=== PATIENT | female | born 1995 | race Caucasian/White ===

== ENCOUNTER → 2020-01-21 | Outpatient (CLI) | payer MEDICAID ==
[2020-01-21 10:10] LABS: HEMATOCRIT 37 % (35-52); HEMOGLOBIN 11.8 G/DL (11.5-16.0); MEAN CORPUSCULAR HEMOGLOBIN 28 PG (25-34); MEAN CORPUSCULAR HGB CONC 32 G/DL (32-36); MEAN CORPUSCULAR VOLUME 89 FL (80-99); PLATELET COUNT 311 10^3/uL (130-400); WHITE BLOOD COUNT 11.2 10^3/uL (4.3-11.0)
[2020-01-21 10:11] LABS: BASOPHILS # (AUTO) 0.1 10^3/uL (0.0-0.1); BASOPHILS % (AUTO) 0 % (0-10); EOSINOPHILS # (AUTO) 0.2 10^3/uL (0.0-0.3); EOSINOPHILS % (AUTO) 2 % (0-10); LYMPHOCYTES # (AUTO) 2.1 X 10^3 (1.0-4.0); LYMPHOCYTES % (AUTO) 19 % (12-44); MONOCYTES # (AUTO) 0.9 X 10^3 (0.0-1.0); MONOCYTES % (AUTO) 8 % (0-12); NEUTROPHILS # (AUTO) 7.9 X 10^3 (1.8-7.8); NEUTROPHILS % (AUTO) 71 % (42-75)
== END ==
LOC: LAB FS 09:31
PROVIDERS: ATTEND Family Medicine
DX: Z34.02 Encounter for supervision of normal first pregnancy, second trimester (principal); Z3A.00 Weeks of gestation of pregnancy not specified
CPT/HCPCS: 36415; 82950; 85025; 86780

== ENCOUNTER 2020-03-29 19:00 | Inpatient (IN) | payer MEDICAID ==
[~2020-03-29] VITALS: Ht 152 cm; Wt 76.1 kg
[2020-03-29] MEDS ORDERED: NS IV 500 ML 500 ML ONE (19:25)
[2020-03-29] MEDS ORDERED: D5 LR IV SOLUTION 1,000 ML IV ONE (19:25)
[2020-03-29] MEDS ORDERED: NS IV 500 ML 500 ML IV ONE (19:30)
[2020-03-29] MEDS ORDERED: MISOPROSTOL 100 MCG (CYTOTEC) TAB PO NR (19:30)
[2020-03-29] MEDS ORDERED: PREN-8 PO (19:40)
[2020-03-29] MEDS: D5 LR IV SOLUTION 1,000 ML IV SCH (19:56)
[2020-03-29 20:06] LABS: BASOPHILS % (AUTO) 0 % (0-10); EOSINOPHILS # (AUTO) 0.2 10^3/uL (0.0-0.3); EOSINOPHILS % (AUTO) 2 % (0-10); HEMATOCRIT 38 % (35-52); HEMOGLOBIN 12.2 g/dL (11.5-16.0); LYMPHOCYTES # (AUTO) 2.2 10^3/uL (1.0-4.0); LYMPHOCYTES % (AUTO) 20 % (12-44); MEAN CORPUSCULAR HEMOGLOBIN 28 pg (25-34); MEAN CORPUSCULAR HGB CONC 32 g/dL (32-36); MEAN CORPUSCULAR VOLUME 85 fL (80-99); MEAN PLATELET VOLUME 10.7 fL (9.0-12.2); MONOCYTES # (AUTO) 0.8 10^3/uL (0.0-1.0); MONOCYTES % (AUTO) 7 % (0-12); NEUTROPHILS # (AUTO) 7.7 10^3/uL (1.8-7.8); NEUTROPHILS % (AUTO) 70 % (42-75); PLATELET COUNT 251 10^3/uL (130-400)
[2020-03-29 20:13] VITALS: BP 133/85
[2020-03-29 22:00] VITALS: BP 119/63
[2020-03-29] MEDS ORDERED: PETROLATUM JELLY(VASELINE) 49 GM JAR ONE (22:55)
[2020-03-29] MEDS ORDERED: ERYTHROMYCIN OPHTH OINT 1 GM (SINGLE USE) TUBE ONE (22:55)
[2020-03-29] MEDS ORDERED: PHYTONADIONE (VIT. K) NEONATAL 1 MG/0.5 ML AMP ONE (22:55)
[2020-03-29 23:00] VITALS: BP 121/62
[2020-03-29] MEDS ORDERED: MISOPROSTOL 100 MCG (CYTOTEC) TAB PO SCH (23:30)
[2020-03-29 23:50] VITALS: BP 115/59
[2020-03-30] VITALS (68 sets, daily range): BP systolic 102–144; BP diastolic 51–81
[2020-03-30] MEDS: D5 LR IV SOLUTION 1,000 ML IV SCH ×2 (03:44→11:39)
[2020-03-30] MEDS ORDERED: OXYTOCIN PRE-MIX DRIP 500 ML IV ONE (08:03)
[2020-03-30] MEDS ORDERED: OXYTOCIN PRE-MIX DRIP 500 ML IV SCH (08:15)
--- NOTE | 2020-03-30 08:28 | History & Physical-OB ---
OB - Chief Complaint & HPI Date/Time Date of Admission: Date of Admission: Mar 29, 2020 at 19:18 Date seen by a Provider: Mar 30, 2020 Time Seen by a Provider: 08:10 Chief Complaint/History OB-Reason for Admission/Chief: Induction of Labor Hx : 1 Hx Para: 0 Expected Date of Delivery: Apr 02, 2020 Gestational Age in Weeks: 39 Gestational Age in Days: 4 Indication for induction: maternal discomfort Admission Nurse Assessment Rev: Yes History of Labs GBS neg Allergies and Home Medications Allergies Coded Allergies: amoxicillin (Verified Allergy, Mild, Hives, 03/29/20) Patient Home Medication List Home Medication List Reviewed: Yes OB - History Hx of Present Care: Yes Ultrasounds: Normal mid trimester US Obstetrical Complications: None Medical Complications: None Patient Past Medical History n/a Immunizations Hepatitis B: Yes OB - Admission Exam Physical Exam Vitals: Vital Signs 03/29/20 03/30/20 03/30/20 20:13 05:50 07:50 Temp 36.8 Pulse 90 Resp 18 B/P (MAP) 112/59 (76) Pulse Ox 98 O2 Delivery Room Air HEENT: NCAT Heart: Rhythm Normal Lungs: Clear Abdomen: Gravid Extremities: Normal Reflexes: Normal Cervical Dilatation: 1cm Effacement: 75% Station: -1 Membranes: Intact Heart Rate: 130's Accelerations: Accelerations Present Decelerations: No Decelerations Short Term Variability: Present Penitentiary Variability: Average (6-25) Contractions on Admission: >10 Minutes Apart Intensity: Mild Cisneros Scoring Tool (Modified) Dilation (cm): 1-2cm (1) Effacement (%): 51-79% (2) Descent/Station: -1,0 (2) Cervix Consistency: Soft (2) Cervix Position: Anterior (2) Subtract 1 point for: Nulliparity (-1) Cisneros Score: 8 Labs Laboratory Tests Test 03/29/20 19:50 Range/Units White Blood Count 11.0 4.3-11.0 10^3/uL Red Blood Count 4.43 3.80-5.11 10^6/uL Hemoglobin 12.2 11.5-16.0 g/dL Hematocrit 38 35-52 % Mean Corpuscular Volume 85 80-99 fL Mean Corpuscular Hemoglobin 28 25-34 pg Mean Corpuscular Hemoglobin Concent 32 32-36 g/dL Red Cell Distribution Width 14.2 10.0-14.5 % Platelet Count 251 130-400 10^3/uL Mean Platelet Volume 10.7 9.0-12.2 fL Immature Granulocyte % (Auto) 1 % Neutrophils (%) (Auto) 70 42-75 % Lymphocytes (%) (Auto) 20 12-44 % Monocytes (%) (Auto) 7 0-12 % Eosinophils (%) (Auto) 2 0-10 % Basophils (%) (Auto) 0 0-10 % Neutrophils # (Auto) 7.7 1.8-7.8 10^3/uL Lymphocytes # (Auto) 2.2 1.0-4.0 10^3/uL Monocytes # (Auto) 0.8 0.0-1.0 10^3/uL Eosinophils # (Auto) 0.2 0.0-0.3 10^3/uL Basophils # (Auto) 0.0 0.0-0.1 10^3/uL Immature Granulocyte # (Auto) 0.1 0.0-0.1 10^3/uL OB - Assessment/Plan/Diagnosis Assessment Assessment: induction of labor Admission Dx 24 yo @ 39.4 Elective induction of labor GBS neg Admission Status: Inpatient Order (span 2 midnights) Reason for Inpatient Admission: Induction of labor at 39 weeks Plan Induction Method: per Misoprostol Protocol ARDEN SWANSON DO Mar 30, 2020 08:28
[2020-03-30] MEDS ORDERED: diphenhydrAMINE 50 MG/ML INJ (BENADRYL) IV PRN (09:00)
[2020-03-30] MEDS ORDERED: CATHETER FLUSH 10 ML SYR IV PRN (09:00)
[2020-03-30] MEDS ORDERED: ONDANSETRON 4 MG/2 ML (SDV) Z0FRAN IV PRN (09:00)
[2020-03-30] MEDS ORDERED: NALOXONE 0.4 MG/ML 1 ML (NARCAN) VIAL IV PRN (09:00)
[2020-03-30] MEDS ORDERED: fentaNYL 2 mcg/ml BUPIVA 0.125 100 ML IV SCH (09:00)
[2020-03-30] MEDS ORDERED: LACTATED RINGERS 1,000 ML IV ONE (09:00)
[2020-03-30] MEDS ORDERED: BUPIVACAINE 0.25% 30 ML (SENSORCAINE) VIAL ONE (09:27)
[2020-03-30] MEDS ORDERED: fentaNYL INJECTION 100 MCG/2 ML AMP ONE (09:27)
[2020-03-30] MEDS ORDERED: LIDOCAINE/EPI 2% 1:200,00 (XYLOCAINE) 10 ML VIAL ONE ×2 (16:21→16:22)
[2020-03-30] MEDS ORDERED: TETANUS,DIPTH,PERTUSS P/F (BOOSTRIX) 0.5 ML VIAL IM ONE (17:45)
[2020-03-30] MEDS ORDERED: DIBUCAINE (NUPERCAINAL) 1% OINT 30 GM TOP PRN (17:45)
[2020-03-30] MEDS ORDERED: MEASLES,MUMPS,RUBELLA 1 EA INJ SQ ONE (17:45)
[2020-03-30] MEDS: IBUPROFEN 600 MG (MOTRIN) TAB PO SCH (18:04)
[2020-03-30] MEDS: OXYTOCIN PRE-MIX DRIP 500 ML IV SCH ×2 (18:04→18:34)
[2020-03-30] MEDS: BENZOCAINE/MENTHOL (DERMOPLAST) 60 ML CAN TP PRN (18:04)
[2020-03-30] MEDS: WITCH HAZEL(TUCKS) 40 EA JAR TOP PRN (18:04)
--- NOTE | 2020-03-30 19:19 | OB Labor & Delivery Record ---
L&D History Date of Service Date of Service: Mar 30, 2020 History Expected Date of Delivery: Apr 02, 2020 Gestational Age in Weeks: 39 Hx : 1 Hx Para: 0 Complications Events: Routine care Operative Indications (Cesarea: N/A-Vaginal Delivery Intrapartal Events: None L&D Stage1 Stage One Onset of Labor - Date: Mar 30, 2020 Monitors and Tracing Monitor Mode: External Heart Rate: 140 Monitor Accelerations: Uniform Monitor Decelerations: None Station: -1 Field Radio Technician Variability: Average (6-10) Short Term Variability: Present Presentation: Vertex Vital Signs VS - Last 72 Hours, by Label 03/29/20 03/29/20 03/29/20 03/29/20 20:13 22:00 23:00 23:50 Temp 36.7 36.7 Pulse 113 86 89 88 Resp 18 18 18 18 B/P (MAP) 119/63 (81) 121/62 (81) 115/59 (77) Pulse Ox 98 O2 Delivery Room Air Room Air Room Air Room Air 03/30/20 03/30/20 03/30/20 03/30/20 00:50 01:50 02:50 03:49 Pulse 82 89 95 95 Resp 18 18 18 18 B/P (MAP) 112/58 (76) 126/60 (82) 120/58 (78) 102/51 (68) O2 Delivery Room Air Room Air Room Air Room Air 03/30/20 03/30/20 03/30/20 03/30/20 04:50 05:50 06:50 07:50 Temp 36.8 Pulse 92 93 105 90 Resp 18 18 18 18 B/P (MAP) 115/59 (77) 117/56 (76) 124/62 (82) 112/59 (76) O2 Delivery Room Air Room Air Room Air Room Air 03/30/20 03/30/20 03/30/20 03/30/20 08:15 08:30 08:45 09:00 Pulse 95 93 90 86 Resp 18 18 18 18 B/P (MAP) 122/72 (89) 128/63 (84) 129/76 (93) 129/76 (93) O2 Delivery Room Air Room Air Room Air Room Air 03/30/20 03/30/20 03/30/20 03/30/20 09:15 09:30 09:38 09:41 Pulse 94 91 96 103 Resp 18 18 18 18 B/P (MAP) 130/75 (93) 127/77 (94) 120/72 (88) 125/72 (89) Pulse Ox 98 99 O2 Delivery Room Air Room Air Room Air Room Air 03/30/20 03/30/20 03/30/20 03/30/20 09:45 09:47 09:50 09:51 Pulse 89 87 71 66 Resp 18 18 18 18 B/P (MAP) 117/68 (84) 119/66 (83) 114/55 (74) 105/52 (69) Pulse Ox 97 97 98 98 O2 Delivery Room Air Room Air Room Air Room Air 03/30/20 03/30/20 03/30/20 03/30/20 09:56 10:00 10:04 10:06 Pulse 87 89 92 96 Resp 18 18 18 18 B/P (MAP) 112/52 (72) 116/56 (76) 111/67 (82) 112/68 (83) Pulse Ox 98 98 99 99 O2 Delivery Room Air Room Air Room Air Room Air 03/30/20 03/30/20 03/30/20 03/30/20 10:10 10:15 10:18 10:25 Temp 36.0 Pulse 96 93 93 93 Resp 18 18 18 18 B/P (MAP) 115/65 (82) 118/67 (84) 112/63 (79) 123/65 (84) Pulse Ox 99 100 100 100 O2 Delivery Room Air Room Air Room Air Room Air 03/30/20 03/30/20 03/30/20 03/30/20 10:30 10:45 11:00 11:15 Pulse 104 100 98 82 Resp 18 18 18 18 B/P (MAP) 113/77 (89) 120/74 (89) 121/67 (85) 111/66 (81) Pulse Ox 100 100 99 99 O2 Delivery Room Air Room Air Room Air Room Air 03/30/20 03/30/20 03/30/20 03/30/20 11:30 11:45 12:00 12:15 Pulse 88 93 90 94 Resp 18 18 18 18 B/P (MAP) 120/66 (84) 119/60 (79) 108/56 (73) 109/60 (76) O2 Delivery Room Air Room Air Room Air Room Air 03/30/20 03/30/20 03/30/20 03/30/20 12:30 12:45 13:00 13:15 Temp 36.5 Pulse 86 86 90 87 Resp 18 18 18 18 B/P (MAP) 110/60 (77) 115/64 (81) 117/66 (83) 113/71 (85) O2 Delivery Room Air Room Air Room Air Room Air 03/30/20 03/30/20 03/30/20 03/30/20 13:30 13:45 14:00 14:15 Temp 36.7 Pulse 82 89 86 83 Resp 18 18 18 18 B/P (MAP) 111/64 (80) 114/64 (81) 127/78 (94) 125/68 (87) O2 Delivery Room Air Room Air Room Air Room Air 03/30/20 03/30/20 03/30/20 03/30/20 14:30 14:45 15:00 15:15 Pulse 90 83 81 81 Resp 18 18 18 18 B/P (MAP) 116/62 (80) 111/56 (74) 131/77 (95) 118/67 (84) O2 Delivery Room Air Room Air Room Air Room Air 03/30/20 03/30/20 03/30/20 03/30/20 15:30 15:45 16:00 16:15 Pulse 86 84 85 99 Resp 18 18 18 18 B/P (MAP) 115/63 (80) 132/74 (93) 127/75 (92) 135/74 (94) O2 Delivery Room Air Room Air Room Air Room Air 03/30/20 03/30/20 03/30/20 03/30/20 16:30 16:45 17:00 17:15 Pulse 83 88 85 89 Resp 18 18 18 18 B/P (MAP) 134/78 (96) 133/81 (98) 135/66 (89) 144/64 (90) O2 Delivery Room Air Room Air Room Air Room Air 03/30/20 03/30/20 03/30/20 03/30/20 17:18 17:45 18:00 18:15 Pulse 114 118 Resp 18 18 18 B/P (MAP) 126/61 (82) 119/60 (79) 114/59 (77) O2 Delivery Room Air Room Air Room Air Room Air Rupture of Membranes Spontaneous Ruture of Membrane: No Amniotic Membrane Rupture Time: 0800 Amniotic Membrane Fluid Desc.: Clear Vaginal Bleeding Description: Normal Show Induction/Anesthesia Epidural Cath Placement - Time: 0956 Progress/Notes Patient admitted for cervical ripening overnight and received 2 doses of PO cytotec. This AM AROM was performed and Pitocin augmentation started this AM. She received and epidural and achieved good pain control until she was complete and 0 station and began feeling pressure. L&D Stage2 Stage Two Stage II Date: Mar 30, 2020 Monitors and Tracing Monitor Mode: External Heart Rate: 140 Monitor Accelerations: Uniform Monitor Decelerations: Variable Long-Term Variability: Average (6-10) Short Term Variability: Present Position: Right Occiput Anterior Presentation: Vertex Cord Descript/Complications Cord Vessel Description: 3 Vessels Complications nuchal cord reduced x 1 Delivery Type Delivery Method: Spontaneous Vaginal Anterior Shoulder: Left Episiotomy/Perineal Laceration Laceraction(s)/Extensions: Yes Episiotomy Description: Midline Degree (describe repair) midline episiotomy repaired using 3-0 rapide vicryl and 2-0 vicryl suture in usual fashion. Condition of Infant Delivery 1 minute Comment: 8 5 minute Comment: 9 Notes Live female weight 6lbs 11oz Condition of Condition of : Living Exam: No Observed Abnormalities Resuscitation Resuscitation: N/A - Spontaneous Resp L&D Stage3 Stage Three Stage III Date: Mar 30, 2020 Pictocin Pitocin Administration mu/min: 12 Pitocin Administration Comment: 1736 pitocin wide open per order, after delivery of placenta Placenta Delivery Placenta Delivery: Spontaneous Delivery Summary Summary Estimated blood loss (mL): 350 Attending at delivery: Arden Swanson DO Condition of Delivery Examined: Cervix Examined, Uterus Explored Post Hemorrhage: No Condition of Mother stable Condition of (s) stable ARDEN SWANSON DO Mar 30, 2020 19:19
[2020-03-30] MEDS ORDERED: DIBU30OI TOP (19:23)
[2020-03-30] MEDS ORDERED: IBUP-844 PO (19:23)
[2020-03-30] MEDS ORDERED: ACHD5005 PO (19:23)
[2020-03-30] MEDS ORDERED: DCS100C PO (19:23)
[2020-03-30] MEDS ORDERED: FERR325T18 PO (19:23)
[2020-03-30] MEDS ORDERED: BENZ78AE5 TP (19:23)
--- NOTE | 2020-03-30 19:24 | Discharge Inst-Women's Service ---
Discharge Inst-Women's Serv Depart Medication/Instructions New, Converted or Re-Newed RX: RX on Chart Final Diagnosis PPD 2 NVD Problems Reviewed?: Yes Consults/Follow Up Additional Follow Up: Yes Orders/Referrals Dr. Swanson in 6 weeks Activity Activity: Activity as Tolerated Driving Instructions: No Driving for 1 Week NO SMOKING: NO SMOKING Nothing Inside Vagina: No Douching, No [place], No Tampons Diet Discharge Diet: No Restrictions Symptoms to Report to : Bleeding Excessive, Pain Increased, Fever Over 101 Degrees F, Vaginal Bleeding Increase, Questions/Concerns For Any Problems or Questions: Contact Your Physician ARDEN SWANSON DO Mar 30, 2020 19:24
[2020-03-30] MEDS ORDERED: CATHETER FLUSH 10 ML SYR IV SCH (22:00)
[2020-03-31 00:44] VITALS: BP 125/72
[2020-03-31] MEDS: IBUPROFEN 600 MG (MOTRIN) TAB PO SCH ×4 (00:44→18:20)
[2020-03-31] MEDS: DOCUSATE SODIUM 100 MG (COLACE) CAP PO SCH ×3 (00:44→21:02)
[2020-03-31] MEDS: HYDROcodone/APAP 5 MG/325 MG (LORTAB) TAB PO PRN ×2 (00:48→21:02)
[2020-03-31 04:20] VITALS: BP 132/73
[2020-03-31 05:35] LABS: BASOPHILS # (AUTO) 0.1 10^3/uL (0.0-0.1); BASOPHILS % (AUTO) 0 % (0-10); EOSINOPHILS # (AUTO) 0.1 10^3/uL (0.0-0.3); EOSINOPHILS % (AUTO) 1 % (0-10); HEMATOCRIT 35 % (35-52); HEMOGLOBIN 11.3 g/dL (11.5-16.0); LYMPHOCYTES # (AUTO) 1.9 10^3/uL (1.0-4.0); LYMPHOCYTES % (AUTO) 13 % (12-44); MEAN CORPUSCULAR HEMOGLOBIN 28 pg (25-34); MEAN CORPUSCULAR HGB CONC 32 g/dL (32-36); MEAN CORPUSCULAR VOLUME 86 fL (80-99); MEAN PLATELET VOLUME 10.9 fL (9.0-12.2); MONOCYTES % (AUTO) 7 % (0-12); NEUTROPHILS # (AUTO) 11.6 10^3/uL (1.8-7.8); NEUTROPHILS % (AUTO) 78 % (42-75); PLATELET COUNT 210 10^3/uL (130-400); WHITE BLOOD COUNT 14.8 10^3/uL (4.3-11.0)
--- NOTE | 2020-03-31 07:01 | Anesthesia-Regional Post-Op ---
Regional Patient Condition Mental Status: Alert, Oriented x3 Circulation: Same as Pre-Op Headache: Absent Sensation: Full Recovery Motor Block: Absent Post Op Complications Complications None Follow Up Care/Instructions Patient Instructions None needed. Anesthesia/Patient Condition Patient is doing well, no complaints, stable vital signs, no apparent adverse anesthesia problems. No complications reported per nursing. [place] [facility] [place] EFREM [place] CRNA Mar 31, 2020 07:01
--- NOTE | 2020-03-31 07:53 | Postpartum Progress Note ---
Note Note Day # 1 Subjective: Patient is without complaints. Ambulating, voiding. Tolerating a regular diet without nausea or vomiting. Normal lochia. Admits some pain at episiotomy suture site. Pain is partially controlled with oral pain medications. Objective: Physical Exam: General - Alert and oriented, no apparent distress Abdomen - Soft, appropriately tender to palpation, non-distended, fundus firm at umbilicus Extremities - no edema, negative Fatimah's bilaterally Assessment: post- day # 1, status post vaginal delivery with episiotomy. Recovering well, hemodynamically stable Plan: Routine care. Encourage breast feeding. Encourage ambulation. Ferrous sulfate supplementation. Plan for discharge per medical student, Jorden Chin Vitals - Labs Vital Signs - I&O Vital Signs Date Time Temp Pulse Resp B/P (MAP) Pulse Ox O2 Delivery O2 Flow Rate FiO2 03/31/20 04:20 36.6 113 18 132/73 (92) 99 Room Air 03/31/20 00:44 36.8 103 18 125/72 (89) 100 Room Air 03/30/20 21:15 36.6 95 18 110/62 (78) Room Air 03/30/20 20:45 106 18 131/69 (89) Room Air 03/30/20 20:15 36.6 111 18 128/81 (97) Room Air 03/30/20 19:45 97 18 118/62 (80) Room Air 03/30/20 19:15 36.8 95 18 115/57 (76) Room Air 03/30/20 19:00 96 18 118/57 (77) Room Air 03/30/20 18:46 109 18 129/60 (83) Room Air 03/30/20 18:45 101 18 124/63 (83) Room Air 03/30/20 18:30 112 18 123/64 (83) Room Air 03/30/20 18:15 18 114/59 (77) Room Air 03/30/20 18:00 118 18 119/60 (79) Room Air 03/30/20 17:45 114 18 126/61 (82) Room Air 03/30/20 17:18 Room Air 03/30/20 17:15 89 18 144/64 (90) Room Air 03/30/20 17:00 85 18 135/66 (89) Room Air 03/30/20 16:45 88 18 133/81 (98) Room Air 03/30/20 16:30 83 18 134/78 (96) Room Air 03/30/20 16:15 99 18 135/74 (94) Room Air 03/30/20 16:00 85 18 127/75 (92) Room Air 03/30/20 15:45 84 18 132/74 (93) Room Air 03/30/20 15:30 86 18 115/63 (80) Room Air 03/30/20 15:15 81 18 118/67 (84) Room Air 03/30/20 15:00 81 18 131/77 (95) Room Air 03/30/20 14:45 83 18 111/56 (74) Room Air 03/30/20 14:30 90 18 116/62 (80) Room Air 03/30/20 14:15 83 18 125/68 (87) Room Air 03/30/20 14:00 86 18 127/78 (94) Room Air 03/30/20 13:45 36.7 89 18 114/64 (81) Room Air 03/30/20 13:30 82 18 111/64 (80) Room Air 03/30/20 13:15 87 18 113/71 (85) Room Air 03/30/20 13:00 90 18 117/66 (83) Room Air 03/30/20 12:45 86 18 115/64 (81) Room Air 03/30/20 12:30 36.5 86 18 110/60 (77) Room Air 03/30/20 12:15 94 18 109/60 (76) Room Air 03/30/20 12:00 90 18 108/56 (73) Room Air 03/30/20 11:45 93 18 119/60 (79) Room Air 03/30/20 11:30 88 18 120/66 (84) Room Air 03/30/20 11:15 82 18 111/66 (81) 99 Room Air 03/30/20 11:00 98 18 121/67 (85) 99 Room Air 03/30/20 10:45 100 18 120/74 (89) 100 Room Air 03/30/20 10:30 104 18 113/77 (89) 100 Room Air 03/30/20 10:25 93 18 123/65 (84) 100 Room Air 03/30/20 10:18 36.0 93 18 112/63 (79) 100 Room Air 03/30/20 10:15 93 18 118/67 (84) 100 Room Air 03/30/20 10:10 96 18 115/65 (82) 99 Room Air 03/30/20 10:06 96 18 112/68 (83) 99 Room Air 03/30/20 10:04 92 18 111/67 (82) 99 Room Air 03/30/20 10:00 89 18 116/56 (76) 98 Room Air 03/30/20 09:56 87 18 112/52 (72) 98 Room Air 03/30/20 09:51 66 18 105/52 (69) 98 Room Air 03/30/20 09:50 71 18 114/55 (74) 98 Room Air 03/30/20 09:47 87 18 119/66 (83) 97 Room Air 03/30/20 09:45 89 18 117/68 (84) 97 Room Air 03/30/20 09:41 103 18 125/72 (89) 99 Room Air 03/30/20 09:38 96 18 120/72 (88) 98 Room Air 03/30/20 09:30 91 18 127/77 (94) Room Air 03/30/20 09:15 94 18 130/75 (93) Room Air 03/30/20 09:00 86 18 129/76 (93) Room Air 03/30/20 08:45 90 18 129/76 (93) Room Air 03/30/20 08:30 93 18 128/63 (84) Room Air 03/30/20 08:15 95 18 122/72 (89) Room Air I & O 03/31/20 07:00 Intake Total 3500 ml Balance 3500 ml Labs Laboratory Tests 03/31/20 04:59: White Blood Count 14.8H, Red Blood Count 4.09, Hemoglobin 11.3L, Hematocrit 35, Mean Corpuscular Volume 86, Mean Corpuscular Hemoglobin 28, Mean Corpuscular Hemoglobin Concent 32, Red Cell Distribution Width 14.3, Platelet Count 210, Mean Platelet Volume 10.9, Immature Granulocyte % (Auto) 1, Neutrophils (%) (Auto) 78H, Lymphocytes (%) (Auto) 13, Monocytes (%) (Auto) 7, Eosinophils (%) (Auto) 1, Basophils (%) (Auto) 0, Neutrophils # (Auto) 11.6H, Lymphocytes # (Auto) 1.9, Monocytes # (Auto) 1.0, Eosinophils # (Auto) 0.1, Basophils # (Auto) 0.1, Immature Granulocyte # (Auto) 0.1 JORDEN CHIN MED STUDENT Mar 31, 2020 07:53
[2020-03-31] MEDS: FERROUS SULF 325 MG (IRON) TAB PO SCH (09:58)
[2020-03-31] MEDS: PRENATAL VITAMIN 1 EA TAB PO SCH (09:58)
[2020-03-31 10:00] VITALS: BP 127/65
[2020-03-31 12:47] VITALS: BP 121/74
[2020-03-31 16:23] VITALS: BP 137/75
[2020-03-31 21:02] VITALS: BP 136/70
[2020-04-01] MEDS: IBUPROFEN 600 MG (MOTRIN) TAB PO SCH ×3 (00:39→11:36)
[2020-04-01 03:40] VITALS: BP 121/66
[2020-04-01] MEDS: WITCH HAZEL(TUCKS) 40 EA JAR TOP PRN (05:40)
[2020-04-01] MEDS: BENZOCAINE/MENTHOL (DERMOPLAST) 60 ML CAN TP PRN (05:40)
--- NOTE | 2020-04-01 07:41 | Postpartum Progress Note ---
MALATHI BARAJAS MED STUDENT 04/01/20 0741: Note Note Day # 2 Subjective: Patient is without complaints. Ambulating, voiding. Tolerating a regular diet without nausea or vomiting. Normal lochia. Pain is well controlled with oral pain medications. feeding. Objective: Physical Exam: General - Alert and oriented, no apparent distress Abdomen - Soft, appropriately tender to palpation, non-distended, fundus firm at umbilicus Extremities - no edema, negative Fatimah's bilaterally Assessment: post- day # 2, status post vaginal delivery. Recovering well, hemodynamically stable Plan: Routine care. Encourage breast feeding. Encourage ambulation. Ferrous sulfate supplementation. Plan for discharge Vitals - Labs Vital Signs - I&O Vital Signs Date Time Temp Pulse Resp B/P (MAP) Pulse Ox O2 Delivery O2 Flow Rate FiO2 04/01/20 03:40 36.3 88 18 121/66 (84) 98 Room Air 03/31/20 21:02 36.0 103 18 136/70 (92) 98 Room Air 03/31/20 16:23 36.6 95 18 137/75 (95) Room Air 03/31/20 12:47 36.5 102 18 121/74 (90) Room Air 03/31/20 10:00 36.7 101 18 127/65 (85) 99 Room Air ARDEN SWANSON DO 04/01/20 1102: Note Note Verification and Attestation of Medical Student E/M Service A medical student performed and documented this service in my presence. I reviewed and verified all information documented by the medical student and made modifications to such information, when appropriate. I personally performed the physical exam and medical decision making. Arden Swanson, Apr 01, 2020,11:02 MALATHI BARAJAS MED STUDENT Apr 01, 2020 07:41 ARDEN SWANSON DO Apr 01, 2020 11:02
[2020-04-01 07:45] VITALS: BP 117/65
[2020-04-01] MEDS: DOCUSATE SODIUM 100 MG (COLACE) CAP PO SCH (08:41)
[2020-04-01] MEDS: PRENATAL VITAMIN 1 EA TAB PO SCH (08:41)
[2020-04-01] MEDS: FERROUS SULF 325 MG (IRON) TAB PO SCH (08:41)
== END 2020-04-01 12:03 | disposition home or self-care (01) | DRG 807 ==
LOC: LDRP 19:18
PROVIDERS: ADMIT Obstetrics & Gynecology; ATTEND Obstetrics & Gynecology
PROC: 10E0XZZ Delivery of Products of Conception, External Approach (ICD-10-PCS; principal; 2020-03-30)
PROC: 10907ZC Drainage of Amniotic Fluid, Therapeutic from Products of Conception, Via Natural or Artificial Opening (ICD-10-PCS; 2020-03-30)
PROC: 0W8NXZZ Division of Female Perineum, External Approach (ICD-10-PCS; 2020-03-30)
DX: O80 Encounter for full-term uncomplicated delivery (principal); Z37.0 Single live birth; Z3A.39 39 weeks gestation of pregnancy; Z20.822 Contact with and (suspected) exposure to COVID-19
CPT/HCPCS: 36415; 85025; 86850; 86900; 86901; 87635